=== PATIENT | male | born 1975 | race Caucasian/White ===

== ENCOUNTER 2025-07-07 00:41 | Inpatient (IN) ==
--- NOTE | 2025-07-07 00:46 | Emergency Department Note ---
History of Present Illness General Chief complaint: Referred by Doctor Stated complaint: REF BY DR BEAN Time Seen by Provider: 07/07/25 00:42 History of Present Illness This is a 49-year-old male who presents to the emergency department referred by me regarding visit from earlier today. The patient has had ongoing right shoulder pain x 1 month. No trauma. No injury. During his visit earlier today he underwent x-ray of the right shoulder which did show some lytic abnormalities to the right scapula prompting CT scan of the chest with IV contrast and right shoulder. On this there were findings concerning for potential malignancy. Pathologic fractures also noted. However, there was also comment of "a focal filling defect at the left internal jugular vein in the lower neck, series 4 image 17. This was reviewed with radiologist, Dr. Wolf via phone. Please refer to documentation earlier today regarding this discussion. In short, Dr. Wolf is concerned this may represent a DVT. This did prompt a phone call to the patient and therefore patient returned for further assessment. Allergies Allergy/AdvReac Type Severity Reaction Status Date / Time N Allergy Unknown Uncoded 07/07/25 08:58 NONE Allergy Unknown Uncoded 07/07/25 08:58 Past Med/Surg History Problem List (Updated 07/07/25 @ 08:58 by Lazara Carson) Pathologic rib fracture (Acute) Acute internal jugular vein thrombosis (Acute) Pain of right shoulder region (Acute) Social History (System 07/07/25 @ 08:58 by Lazara Carson) Smoking Status: Current every day smoker Tobacco Type: Cigarettes Cigarettes Per Day: 1 pack a day; Second Hand Exposure: Yes; Do You Dip or Chew Tobacco: No; Tobacco Cessation Education Requested by Patient: No Hx Alcohol Use: Yes Alcohol type: beer Hx Substance Use: No Preferred Language: Libyan Communication Ability: Effective Electronic Test Technician Required: No Beliefs That Will Affect Care: None Current Living Situation: Spouse and Family Other Information That Helps Us Care for You: No Feels Safe at Home: Yes Safety Concerns: Feels Safe At This Time Review of Systems A total of 10 systems reviewed and were otherwise negative Physical Exam Vital Signs Vital Signs - 24 hr 07/07/25 00:46 07/07/25 01:08 07/07/25 02:41 Temperature 36.8 C Temperature Source Temporal Artery Scan Pulse Rate 126 H 118 H Pulse Rate [Apical] 106 H Respiratory Rate 17 18 Respiratory Effort / Characteristics Non-Labored Spontaneous Non-Labored Spontaneous Respiratory Depth Normal Normal Respiratory Pattern Regular Regular Blood Pressure 120/81 Blood Pressure [Right Arm] 138/96 Blood Pressure Mean 94 Blood Pressure Mean [Right Arm] 110 Pulse Oximetry 98 97 Oxygen Delivery Method Room Air Room Air Sepsis Recent Fever Within 48 Hours No Sepsis New/Unexplained Change in Mental Status N/A Sepsis Action Taken by Nursing No Action Required VITAL SIGNS - Vital signs and nursing notes were reviewed. Tachycardic, otherwise stable and afebrile. GENERAL -49-year-old male appearing his stated age who is in no acute distress. Communicates well with provider and answers questions appropriately. SKIN - Without rashes. No meningeal or petechial rash HEAD - NC/AT. EYES - Sclera anicteric. NOSE - Midline and without cyanosis. No epistaxis or purulent drainage noted. MOUTH/OROPHARYNX - Without perioral cyanosis. NECK - Neck with FROM. No nuchal rigidity. LUNGS -CTA CARDIAC - RRR ABDOMEN - Abdominal contour normal without pulsations or visible masses. BS normoactive all four quadrants. No tenderness, palpable masses, hepatosplenomegaly, or ascites noted. EXTREMITIES - No clubbing or peripheral cyanosis. +5/5 strength noted in UE/LE bilaterally. NEUROLOGIC - Cranial nerves II through XII grossly intact. PSYCH -alert, oriented and pleasant on exam Course Administered Medications Acetaminophen (Acetaminophen 325 Mg Tab) 650 mg PO Q4H PRN PRN Reason: Pain or Fever Stop: 08/06/25 05:34 Last Admin: 07/07/25 06:14 Dose: 650 mg Documented By: MARICHUY Heparin Sodium/Dextrose (Heparin 32166 Unit/500 Ml D5w) 25,000 units in 500 mls @ 27 mls/hr IV .[id number] [facility]; Protocol Stop: 08/06/25 01:44 Last Titration: 07/07/25 07:06 Dose: 1,350 units/hr, 27 mls/hr Documented By: [email or web address] Co-signed By: MARICHUY Admin: 07/07/25 02:23 Dose: 1,350 units/hr, 27 mls/hr Documented By: bennett Co-signed By: FABIAN Oxycodone HCl (Oxycodone Hcl Ir 5 Mg Tab (Immediate Release)) 5 mg PO Q6H PRN PRN Reason: Mod-Sev Pain (Scale 4-10) Stop: 07/21/25 05:34 Last Admin: 07/07/25 06:13 Dose: 5 mg Documented By: MARICHUY Discontinued Medications Heparin Sodium (Porcine) (Heparin Sod (Porcine) 1000 Unit/Ml) 1 units IV NOW ONE Stop: 07/07/25 01:34 Last Admin: 07/07/25 02:19 Dose: 6,000 units Documented By: bennett Co-signed By: FABIAN Heparin Sodium/Dextrose (Heparin Iv Adult Wt-Based Standard W/ Initial Bolus Protocol) 1 each IV NOW STA; Protocol Stop: 07/07/25 01:19 Last Admin: 07/07/25 02:29 Dose: Not Given Documented By: bennett Sodium Chloride (Nss) 500 mls @ 125 mls/hr IV .Q4H ONE Stop: 07/07/25 05:17 Last Infusion: 07/07/25 06:23 Dose: Infused Documented By: Admin: 07/07/25 02:23 Dose: 125 mls/hr Documented By: bennett Potassium Chloride (K Jason / Wtr) 10 meq in 100 mls @ 100 mls/hr IV Q1H [facility] Stop: 07/07/25 07:14 Last Admin: 07/07/25 10:03 Dose: 100 mls/hr Documented By: Infusion: 07/07/25 08:54 Dose: Infused Documented By: Admin: 07/07/25 07:54 Dose: 100 mls/hr Documented By: Infusion: 07/07/25 07:15 Dose: Infused Documented By: Admin: 07/07/25 06:15 Dose: 100 mls/hr Documented By: Infusion: 07/07/25 05:11 Dose: Infused Documented By: Admin: 07/07/25 04:07 Dose: 100 mls/hr Documented By: bennett Dexamethasone 6 mg/ Syringe 1.5 mls @ 1 mls/min IV NOW STA Stop: 07/07/25 05:42 Last Admin: 07/07/25 06:13 Dose: 1 mls/min Documented By: MARICHUY Ioversol (Optiray 320 125ml) 118 ml IV ONCE ONE Stop: 07/07/25 01:45 Last Admin: 07/07/25 01:44 Dose: 118 ml Documented By: RUDDY Miscellaneous Information (Patient's Allergy Info Needs Entered) 1 each N/A NOW STA Stop: 07/07/25 01:34 Last Admin: 07/07/25 02:24 Dose: 1 each Documented By: bennett Potassium Chloride (Potassium Chloride 20 Meq/15 Ml Udc) 20 meq PO NOW STA Stop: 07/07/25 03:15 Last Admin: 07/07/25 04:07 Dose: 20 meq Documented By: bennett Medical Decision Making Laboratory Data 07/07/25 01:07 07/07/25 01:07 Lab Results 07/07/25 Range/Units 01:07 WBC 8.03 (4.8-10.8) K/ul RBC 4.30 L (4.70-6.10) M/uL Hgb 16.0 (14.0-18.0) g/dl Hct 43.1 (42.0-52.0) % MCV 100.2 H (80.0-100.0) fL MCH 37.2 H (25.0-34.0) pg MCHC 37.1 H (32.0-36.0) g/dL RDW Std Deviation 45.6 (36.4-46.3) fL RDW Coeff of Anthony 12.3 (11.5-14.5) % Plt Count 176 (130-400) K/uL MPV 9.7 (9.4-12.4) fL Immature Gran % (Auto) 0.2 % Neut % (Auto) 71.6 % Lymph % (Auto) 13.3 % [place] % (Auto) 9.5 % Eos % (Auto) 5.0 % Baso % (Auto) 0.4 % Neut # (Auto) 5.75 (1.40-6.50) K/uL Lymph # (Auto) 1.07 L (1.20-3.40) K/uL [place] # (Auto) 0.76 H (0.11-0.59) K/uL Eos # (Auto) 0.40 (0.00-0.50) K/uL Baso # (Auto) 0.03 (0.00-0.20) K/uL Immature Gran # (Auto) 0.02 (0.01-0.20) K/uL PT 10.5 (9.0-12.0) Seconds INR 1.0 (0.9-1.1) APTT 25 (21-31) Seconds PTT Ratio 0.9 Sodium 136 (136-145) mmol/L Potassium 3.1 L D (3.5-5.1) mmol/L Chloride 99 (98-107) mmol/L Carbon Dioxide 28 (21-32) mmol/L Anion Gap 9 (3-11) BUN 5 L (6-23) mg/dl Creatinine 0.55 L (0.6-1.4) mg/dl Est Cr Clr Drug Dosing 171.4 ml/min eGFR 123.01 BUN/Creatinine Ratio 9.1 L (10-20) Glucose 93 (70-99(Fasting)) mg/dl Calcium 10.6 H (8.6-10.3) mg/dl Magnesium 1.8 (1.7-2.4) mg/dl Total Bilirubin 1.1 H (0.2-1.0) mg/dl AST 13 (13-39) U/L ALT 8 (7-52) U/L Alkaline Phosphatase 81 (34-104) U/L Troponin I High Sens 2.8 (0-20) pg/ml Total Protein 7.2 (6.0-8.3) gm/dl Albumin 3.8 (3.4-5.0) gm/dl Globulin 3.4 (2.5-4.0) gm/dl Albumin/Globulin Ratio 1.1 (0.9-2) Imaging Data Radiologist's Impression: Abdomen/Pelvis CT 07/07/25 01:16 EXAM: CT abd pelvis IV con only CLINICAL HISTORY: abnormal chest CT, DVT TECHNIQUE: Multiple contiguous axial images were obtained from the level of the diaphragm to the pubic symphysis. This study was acquired after intravenous administration of iodinated contrast material, given the patient's indications for the examination. If intravenous contrast material had not been administered, the likelihood of detecting abnormalities relevant to the patient's condition would have been substantially decreased. Coronal and sagittal reformatted images were generated and reviewed to improve anatomic localization and optimize lesion detection. CT scan was performed according to ALARA (as low as reasonably achievable). COMPARISON: none FINDINGS: The visualized lung bases show bilateral mild subpleural atelectasis. ABDOMEN/PELVIS: The liver is normal in size and attenuation. No focal liver lesions are seen. There is no intra- or extrahepatic biliary ductal dilatation. Hepatic vasculature is patent. The gallbladder is unremarkable. The spleen, pancreas, and adrenal glands are unremarkable. The kidneys are normal in size and attenuation. There is no hydronephrosis. Mild bilateral perinephric fat stranding and edema are present. No renal calculi or renal masses are identified. The ureters are normal in caliber and no ureteral calculi are seen. The bladder is normal in contour. The prostate is unremarkable. No evidence of focal or diffuse bowel wall thickening or evidence of bowel obstruction is seen. The appendix is visualized in the right lower quadrant and appears within normal limits. No fluid collections are seen. Multiple subcentimeter sized nodules are seen in the perinephric region,omentum, pericolic region, perisplenic region. The aorta is normal in caliber. No aggressive-appearing osseous lesions are identified. IMPRESSION: 1. Mild bilateral perinephric fat stranding and edema?suggest renal function test correlation. 2. Multiple subcentimeter sized nodules are seen in the perinephric region, pericolic region, omentum, perisplenic region-likely reactive lymphnodes. Electronically signed by Goldy Lovett 07-07-2025 03:15 AM Chest CTA 07/07/25 01:16 EXAM: CT angio chest PE protocol CLINICAL HISTORY: tachycardia, DVT TECHNIQUE: Contiguous axial images were obtained from the neck base through the upper abdomen following intravenous administration of iodinated contrast material. Angiographic images were processed, and 3D MIP images were acquired for interpretation. If IV contrast material had not been administered, the likelihood of detecting abnormalities relevant to the patient's condition would have been substantially decreased. Coronal and sagittal 3-D MIPs were likewise performed and indicated to increase the sensitivity of detecting diffuse clinically relevant pathology. The CT scan was performed according to ALARA (as low as reasonably achievable). COMPARISON: 17:59:02 [employer]. FINDINGS: Ill-defined ground-glass haze with adjacent atelectatic bands is noted involving bilateral posterior basal segments, which could be sequelae of prior infection or congestion. Multiple conglomerated subcentimeter-sized to enlarged lymph nodes are noted involving the prevascular, pre- and paratracheal, aortopulmonary window, subcarinal, and perihilar regions. The largest measures about 33 mm. Adequate contrast bolus without evidence of pulmonary embolism. The central airways are patent. The lungs are clear. No pleural effusion. The heart, aorta, and pulmonary arteries are of normal size and configuration. There are no appreciable coronary artery or aortic atherosclerotic calcifications. No pericardial effusion is identified. The thyroid is unremarkable. No suspicious lytic or sclerotic osseous lesions are identified. IMPRESSION: Ill-defined ground-glass haze with adjacent atelectatic bands is noted involving bilateral posterior basal segments, which could be sequelae of prior infection or congestion. Stable. Multiple conglomerated subcentimeter-sized to enlarged lymph nodes are noted involving the prevascular, pre- and paratracheal, aortopulmonary window, subcarinal, and perihilar regions. The largest measures about 33 mm. Stable. No obvious pulmonary embolism. Electronically signed by Goldy Lovett 07-07-2025 03:03 AM Soft Tissue Neck CT 07/07/25 01:16 EXAM: CT soft tissue neck w con CLINICAL HISTORY: filling defect internal jugular vein TECHNIQUE: Computed tomography of the neck was performed with intravenous contrast. Contiguous axial images were obtained. Reformatted coronal and sagittal images were also reviewed. If IV contrast material had not been administered, the likelihood of detecting abnormalities relevant to the patient's condition would have been substantially decreased. CT scan was performed according to ALARA (as low as reasonably achievable). COMPARISON: none FINDINGS: A small, partially lumen-occluding filling defect is seen at the lower end of the left internal jugular vein near its convergence with the left subclavian vein. The rest of the left internal jugular vein is patent. The visualized left brachiocephalic vein is patent, but is externally compressed by mediastinal lymph nodes. The right internal jugular vein is patent. A few enlarged necrotic lymph nodes are seen in bilateral level IV, , and right supraclavicular locations, the largest measuring 13 x 9 mm. Multiple necrotic lymph nodes are seen in the visualized mediastinum. There is an edematous and bulky soft palate and uvula, causing significant nasopharyngeal and oropharyngeal airway narrowing. Bilateral maxillary sinusitis and right ethmoid sinusitis seen. The included intracranial structures and orbits are grossly unremarkable. The oral cavity, hypopharynx, and larynx are grossly unremarkable. The parotid, submandibular, and thyroid glands are grossly unremarkable. Bilateral carotid arteries are patent and show normal course, caliber, and opacification. The visualized included lung apices are grossly clear, and no acute osseous abnormality is detected. IMPRESSION: 1. A small, partially lumen-occluding focal thrombus is seen at the lower end of the left internal jugular vein near its convergence with the left subclavian vein. The rest of the left internal jugular vein is patent. 2. The visualized left brachiocephalic vein is patent, but is externally compressed by mediastinal lymph nodes. 3. The right internal jugular vein is patent. 4. A few enlarged necrotic lymph nodes are seen in bilateral level IV, , and right supraclavicular locations. 5. Multiple necrotic lymph nodes are seen in the visualized mediastinum. 6. An edematous and bulky soft palate and uvula cause significant nasopharyngeal and oropharyngeal airway narrowing. Electronically signed by Goldy Lovett 07-07-2025 03:07 AM MDM Narrative Patient was seen and evaluated as above in room B05. Review was performed of nursing notes and vital signs. I did review pertinent previous visits and patient history. After obtaining a thorough history and physical examination the above work up was performed. Patient presents to us today referred back to the ED by me as I saw him on earlier visit. Please refer to earlier visit regarding full findings. 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 Wolf. I did speak with Dr. Wolf via phone and he notes this is a DVT. I did have the patient return for further assessment. EKG per my interpretation reveals sinus tachycardia at a rate of 120 bpm. QTc 435. QRS 82. No ST elevation on this rhythm tracing. Options of care were discussed with the patient. IV access was established. Labs were drawn. I did elect to further CT scans with angio of the chest, abdomen and pelvis with IV contrast but also soft tissue neck. I did confirm with our instructional technologist this would be 1 contrast load to scan through these regions. I reviewed benefit versus risk with the patient. At this time we will proceed. I also considered anticoagulation noting the filling defect is seen on the chest CT earlier today. After reviewing benefit versus risk of anticoagulation with the patient, decision was made to proceed. Patient denies any recent trauma or injury. No history of GI bleeding. No bleeding disorders. It is felt that the benefit outweighed risk. CT scans resulted as above. I discussed the case with the hospitalist service, Dr. Reich. We are in agreement to proceed with the IV heparin, further imaging. GCS: 15 In the evaluation and treatment of this patient the following differential diagnoses were entertained: PE, DVT, malignancy, infection, among others Impression & Plan Pain of right shoulder region, Acute internal jugular vein thrombosis, Pathologic rib fracture Discharge Plan Visit Data Chief Complaint: Referred by Doctor Stated Complaint: REF BY DR BEAN ED Provider: Sree Stuart ED Midlevel Provider: Yair Dubois Discharge Problem: Pain of right shoulder region, Acute internal jugular vein thrombosis, Pathologic rib fracture Patient Disposition: Admitted As Inpatient Condition: Good Discharge Instructions Interventions: ED Discharge Assessment Last Done: 07/07/25 05:40
[2025-07-07 01:26] LABS: Hematocrit (blood only) 43.1 % (42.0-52.0); Hemoglobin 16.0 g/dl (14.0-18.0); Immature Granulocytes # (auto) 0.02 K/uL (0.01-0.20); Immature Granulocytes % (auto) 0.2 %; Mean Corpuscular Hemoglobin 37.2 pg (25.0-34.0); Mean Corpuscular Volume 100.2 fL (80.0-100.0); Platelet Count 176 K/uL (130-400); RDW Standard Deviation 45.6 fL (36.4-46.3); Red Blood Count 4.30 M/uL (4.70-6.10); White Blood Count 8.03 K/ul (4.8-10.8)
[2025-07-07] MEDS: OPTIRAY 320 125ml IV ONE (01:44)
[2025-07-07 01:47] LABS: Alanine Aminotransferase 8.0 U/L (7-52); Albumin Globulin Ratio 1.1 (0.9-2); Albumin Level 3.8 gm/dl (3.4-5.0); Alkaline Phosphatase 81.0 U/L (34-104); Anion Gap 9.0 (3-11); Bilirubin,Total 1.1 mg/dl (0.2-1.0); Blood Urea Nitrogen 5.0 mg/dl (6-23); Calcium 10.6 mg/dl (8.6-10.3); Carbon Dioxide 28.0 mmol/L (21-32); Chloride 99.0 mmol/L (98-107); Creatinine Clr Calc Pharmacy 171.4 ml/min; Globulin 3.4 gm/dl (2.5-4.0); Glucose 93.0 mg/dl (70-99(Fasting)); Magnesium 1.8 mg/dl (1.7-2.4); Potassium 3.1 mmol/L (3.5-5.1); Sodium 136.0 mmol/L (136-145); Total Protein 7.2 gm/dl (6.0-8.3)
[2025-07-07 01:56] LABS: INR 1.0 (0.9-1.1); Partial Thromboplastin Time 25 Seconds (21-31); Prothrombin Time 10.5 Seconds (9.0-12.0)
[2025-07-07] MEDS: HEPARIN SOD (PORCINE) 1000 UNIT/ML IV ONE (02:19)
[2025-07-07] MEDS: SODIUM CHLORIDE 0.9% 500 ML IV ONE (02:23)
[2025-07-07] MEDS: HEPARIN 25000 UNIT/500 ML D5W 25,000 UNITS/500 ML BAG IV SCH (02:23)
[2025-07-07] MEDS: Heparin IV Adult Wt-Based Standard w/ INITIAL Bolus Protocol IV STA (02:29)
--- NOTE | 2025-07-07 03:04 | CT Scan Report ---
EXAM: CT angio chest PE protocol CLINICAL HISTORY: tachycardia, DVT TECHNIQUE: Contiguous axial images were obtained from the neck base through the upper abdomen following intravenous administration of iodinated contrast material. Angiographic images were processed, and 3D MIP images were acquired for interpretation. If IV contrast material had not been administered, the likelihood of detecting abnormalities relevant to the patient's condition would have been substantially decreased. Coronal and sagittal 3-D MIPs were likewise performed and indicated to increase the sensitivity of detecting diffuse clinically relevant pathology. The CT scan was performed according to ALARA (as low as reasonably achievable). COMPARISON: 17:59:02 [employer]. FINDINGS: Ill-defined ground-glass haze with adjacent atelectatic bands is noted involving bilateral posterior basal segments, which could be sequelae of prior infection or congestion. Multiple conglomerated subcentimeter-sized to enlarged lymph nodes are noted involving the prevascular, pre- and paratracheal, aortopulmonary window, subcarinal, and perihilar regions. The largest measures about 33 mm. Adequate contrast bolus without evidence of pulmonary embolism. The central airways are patent. The lungs are clear. No pleural effusion. The heart, aorta, and pulmonary arteries are of normal size and configuration. There are no appreciable coronary artery or aortic atherosclerotic calcifications. No pericardial effusion is identified. The thyroid is unremarkable. No suspicious lytic or sclerotic osseous lesions are identified. IMPRESSION: Ill-defined ground-glass haze with adjacent atelectatic bands is noted involving bilateral posterior basal segments, which could be sequelae of prior infection or congestion. Stable. Multiple conglomerated subcentimeter-sized to enlarged lymph nodes are noted involving the prevascular, pre- and paratracheal, aortopulmonary window, subcarinal, and perihilar regions. The largest measures about 33 mm. Stable. No obvious pulmonary embolism. Electronically signed by Goldy Lovett 07-07-2025 03:03 AM
--- NOTE | 2025-07-07 03:08 | CT Scan Report ---
EXAM: CT soft tissue neck w con CLINICAL HISTORY: filling defect internal jugular vein TECHNIQUE: Computed tomography of the neck was performed with intravenous contrast. Contiguous axial images were obtained. Reformatted coronal and sagittal images were also reviewed. If IV contrast material had not been administered, the likelihood of detecting abnormalities relevant to the patient's condition would have been substantially decreased. CT scan was performed according to ALARA (as low as reasonably achievable). COMPARISON: none FINDINGS: A small, partially lumen-occluding filling defect is seen at the lower end of the left internal jugular vein near its convergence with the left subclavian vein. The rest of the left internal jugular vein is patent. The visualized left brachiocephalic vein is patent, but is externally compressed by mediastinal lymph nodes. The right internal jugular vein is patent. A few enlarged necrotic lymph nodes are seen in bilateral level IV, , and right supraclavicular locations, the largest measuring 13 x 9 mm. Multiple necrotic lymph nodes are seen in the visualized mediastinum. There is an edematous and bulky soft palate and uvula, causing significant nasopharyngeal and oropharyngeal airway narrowing. Bilateral maxillary sinusitis and right ethmoid sinusitis seen. The included intracranial structures and orbits are grossly unremarkable. The oral cavity, hypopharynx, and larynx are grossly unremarkable. The parotid, submandibular, and thyroid glands are grossly unremarkable. Bilateral carotid arteries are patent and show normal course, caliber, and opacification. The visualized included lung apices are grossly clear, and no acute osseous abnormality is detected. IMPRESSION: 1. A small, partially lumen-occluding focal thrombus is seen at the lower end of the left internal jugular vein near its convergence with the left subclavian vein. The rest of the left internal jugular vein is patent. 2. The visualized left brachiocephalic vein is patent, but is externally compressed by mediastinal lymph nodes. 3. The right internal jugular vein is patent. 4. A few enlarged necrotic lymph nodes are seen in bilateral level IV, , and right supraclavicular locations. 5. Multiple necrotic lymph nodes are seen in the visualized mediastinum. 6. An edematous and bulky soft palate and uvula cause significant nasopharyngeal and oropharyngeal airway narrowing. Electronically signed by Goldy Lovett 07-07-2025 03:07 AM
--- NOTE | 2025-07-07 03:16 | CT Scan Report ---
EXAM: CT abd pelvis IV con only CLINICAL HISTORY: abnormal chest CT, DVT TECHNIQUE: Multiple contiguous axial images were obtained from the level of the diaphragm to the pubic symphysis. This study was acquired after intravenous administration of iodinated contrast material, given the patient's indications for the examination. If intravenous contrast material had not been administered, the likelihood of detecting abnormalities relevant to the patient's condition would have been substantially decreased. Coronal and sagittal reformatted images were generated and reviewed to improve anatomic localization and optimize lesion detection. CT scan was performed according to ALARA (as low as reasonably achievable). COMPARISON: none FINDINGS: The visualized lung bases show bilateral mild subpleural atelectasis. ABDOMEN/PELVIS: The liver is normal in size and attenuation. No focal liver lesions are seen. There is no intra- or extrahepatic biliary ductal dilatation. Hepatic vasculature is patent. The gallbladder is unremarkable. The spleen, pancreas, and adrenal glands are unremarkable. The kidneys are normal in size and attenuation. There is no hydronephrosis. Mild bilateral perinephric fat stranding and edema are present. No renal calculi or renal masses are identified. The ureters are normal in caliber and no ureteral calculi are seen. The bladder is normal in contour. The prostate is unremarkable. No evidence of focal or diffuse bowel wall thickening or evidence of bowel obstruction is seen. The appendix is visualized in the right lower quadrant and appears within normal limits. No fluid collections are seen. Multiple subcentimeter sized nodules are seen in the perinephric region,omentum, pericolic region, perisplenic region. The aorta is normal in caliber. No aggressive-appearing osseous lesions are identified. IMPRESSION: 1. Mild bilateral perinephric fat stranding and edema?suggest renal function test correlation. 2. Multiple subcentimeter sized nodules are seen in the perinephric region, pericolic region, omentum, perisplenic region-likely reactive lymphnodes. Electronically signed by Goldy Lovett 07-07-2025 03:15 AM
[2025-07-07] MEDS: POTASSIUM CHLORIDE 20 MEQ/15 ML UDC PO STA (04:07)
[2025-07-07] MEDS: POTASSIUM CHLORIDE / WTR 10 MEQ/100 ML PLCT IV SCH (04:07)
--- NOTE | 2025-07-07 04:34 | History & Physical Report ---
Date of Service July 07, 2025 Assessment & Plan (1) Acute internal jugular vein thrombosis: Plan: 49-year-old male with no significant past medical history presents with right shoulder pain and found to have lytic lesions and also left jugular vein DVT. Patient is having ongoing right shoulder pain for about a month. He was seen at [facility] few weeks back and chest x-ray was done. He was prescribed muscle relaxant and prednisone. He also followed up with PCP. As symptoms not getting better he came to the ER earlier in the day. He had a shoulder x-ray which showed a bony destructive lesion involve the lateral aspect of the scapula and also fracture of this right sixth rib with minimal displacement. Chest CT showed several abnormal enlarged and necrotic appearing lymph nodes in the mediastinum. Right 6th and 5th rib fracture associate with abnormal lucency appearing pathologic. Shoulder CT was unremarkable. Patient wanted to follow as outpatient and was discharged. But later it was realized that CT scan of the chest showed filling defect in the left internal jugular vein in the lower neck and the patient was called back to the hospital. Patient says currently pain is better. Has some chest congestion. Denies any fevers. No nausea. No abdominal pain. No headache. Vision is okay. Appetite is okay. Denies any recent weight loss. Denies night sweats. Normal bowel and bladder movements. Hemodynamics okay. Acute left internal jugular vein thrombosis Pathological fractures of the right 5th and 6th ribs Mild bilateral perinephric fat stranding on CT abdomen pelvis CTA chest shows' multiple conglomerated subcentimeter sized enlarged lymph nodes involving the prevascular and paratracheal and aortopulmonary window, subcarinal and perihilar regions.' Soft tissue neck CT scan shows 'small partially lumen occluding focal thrombosis in the lower end of the left internal jugular vein near its convergence with left subclavian vein. Few enlarged necrotic lymph nodes seen in the bilateral level 4, 6 and right supraclavicular location. Multiple necrotic lymph nodes seen in the visualized mediastinum. And also edematous and bulky soft palate and uvula causing significant nasopharyngeal and oropharyngeal airway narrowing'. Patient hemodynamics are okay. Started on IV heparin. A dose of Decadron ordered Pain control. Close monitoring telemetry Consult hematology/oncology and ENT for further recommendations Tobacco abuse Counseling DVT prophylaxis On IV heparin Disposition Telemetry Full code. : History of Present Illness Chief Complaint: Shoulder pain, left jugular DVT Primary Care Provider: NO PCP 49-year-old male with no significant past medical history presents with right shoulder pain and found to have lytic lesions and also left jugular vein DVT. Patient is having ongoing right shoulder pain for about a month. He was seen at [facility] few weeks back and chest x-ray was done. He was prescribed muscle relaxant and prednisone. He also followed up with PCP. As symptoms not getting better he came to the ER earlier in the day. He had a shoulder x-ray which showed a bony destructive lesion involve the lateral aspect of the scapula and also fracture of this right sixth rib with minimal displacement. Chest CT showed several abnormal enlarged and necrotic appearing lymph nodes in the mediastinum. Right 6th and 5th rib fracture associate with abnormal lucency appearing pathologic. Shoulder CT was unremarkable. Patient wanted to follow as outpatient and was discharged. But later it was realized that CT scan of the chest showed filling defect in the left internal jugular vein in the lower neck and the patient was called back to the hospital. Patient says currently pain is better. Has some chest congestion. Denies any fevers. No nausea. No abdominal pain. No headache. Vision is okay. Appetite is okay. Denies any recent weight loss. Denies night sweats. Normal bowel and bladder movements. Hemodynamics okay. Past medical history. As mentioned above Past surgical history. Had surgery to his right little finger. Social history. Smokes 1 pack a day. No alcohol. No drug use. Family history. Denies any significant family history. Allergies Allergy/AdvReac Type Severity Reaction Status Date / Time No Known Allergies Allergy Unverified 07/07/25 02:18 Past Med/Surg History Problem List (Updated 07/07/25 @ 02:15 by Yair Dubois PA-C) Pathologic rib fracture (Acute) Acute internal jugular vein thrombosis (Acute) Pain of right shoulder region (Acute) Social History Smoking Status: Current every day smoker Tobacco Type: Cigarettes Cigarettes Per Day: 1 pack a day; Second Hand Exposure: Yes; Do You Dip or Chew Tobacco: No; Tobacco Cessation Education Requested by Patient: No Hx Alcohol Use: Yes Alcohol type: beer Hx Substance Use: No Preferred Language: Yakut Communication Ability: Effective Infrastructure Engineer Required: No Beliefs That Will Affect Care: None Current Living Situation: Spouse and Family Other Information That Helps Us Care for You: No Feels Safe at Home: Yes Safety Concerns: Feels Safe At This Time Review of Systems Review of Systems: All systems reviewed & are unremarkable except as noted in HPI & below Physical Exam Physical Exam: General-Not in distress Head- atraumatic Eyes- PERRL. ENT- oropharynx clear Neck- supple, no JVD. Lungs- clear to auscultation no wheezing or crackles Heart- regular rhythm; no murmur, no gallop Abdomen- normal bowel sounds, soft, nontender, no distension Extremities- no pretibial edema, no erythema seen Neuro- alert, oriented PERRL, no facial palsy; no dysarthria; moves extremities Results & Data Results & Data Vital Signs (Past 12 Hours) Vital Signs Temp Pulse Pulse Resp BP BP Pulse Ox 07/07/25 02:41 106 H 18 138/96 97 07/07/25 01:08 118 H 07/07/25 00:46 36.8 C 126 H 17 120/81 98 O2 Del Method 07/07/25 02:41 Room Air 07/07/25 01:08 07/07/25 00:46 Room Air Diagnostic Findings Laboratory Results WBC 8.03 K/ul (4.8-10.8) 07/07/25 01:07 RBC 4.30 M/uL (4.70-6.10) L 07/07/25 01:07 Hgb 16.0 g/dl (14.0-18.0) 07/07/25 01:07 Hct 43.1 % (42.0-52.0) 07/07/25 01:07 MCV 100.2 fL (80.0-100.0) H 07/07/25 01:07 MCH 37.2 pg (25.0-34.0) H 07/07/25 01:07 MCHC 37.1 g/dL (32.0-36.0) H 07/07/25 01:07 RDW Std Deviation 45.6 fL (36.4-46.3) 07/07/25 01:07 RDW Coeff of Anthony 12.3 % (11.5-14.5) 07/07/25 01:07 Plt Count 176 K/uL (130-400) 07/07/25 01:07 MPV 9.7 fL (9.4-12.4) 07/07/25 01:07 Immature Gran % (Auto) 0.2 % 07/07/25 01:07 Neut % (Auto) 71.6 % 07/07/25 01:07 Lymph % (Auto) 13.3 % 07/07/25 01:07 [place] % (Auto) 9.5 % 07/07/25 01:07 Eos % (Auto) 5.0 % 07/07/25 01:07 Baso % (Auto) 0.4 % 07/07/25 01:07 Neut # (Auto) 5.75 K/uL (1.40-6.50) 07/07/25 01:07 Lymph # (Auto) 1.07 K/uL (1.20-3.40) L 07/07/25 01:07 [place] # (Auto) 0.76 K/uL (0.11-0.59) H 07/07/25 01:07 Eos # (Auto) 0.40 K/uL (0.00-0.50) 07/07/25 01:07 Baso # (Auto) 0.03 K/uL (0.00-0.20) 07/07/25 01:07 Immature Gran # (Auto) 0.02 K/uL (0.01-0.20) 07/07/25 01:07 PT 10.5 Seconds (9.0-12.0) 07/07/25 01:07 INR 1.0 (0.9-1.1) 07/07/25 01:07 APTT 25 Seconds (21-31) 07/07/25 01:07 PTT Ratio 0.9 07/07/25 01:07 Sodium 136 mmol/L (136-145) 07/07/25 01:07 Potassium 3.1 mmol/L (3.5-5.1) L D 07/07/25 01:07 Chloride 99 mmol/L (98-107) 07/07/25 01:07 Carbon Dioxide 28 mmol/L (21-32) 07/07/25 01:07 Anion Gap 9 (3-11) 07/07/25 01:07 BUN 5 mg/dl (6-23) L 07/07/25 01:07 Creatinine 0.55 mg/dl (0.6-1.4) L 07/07/25 01:07 Est Cr Clr Drug Dosing 171.4 ml/min 07/07/25 01:07 eGFR 123.01 07/07/25 01:07 BUN/Creatinine Ratio 9.1 (10-20) L 07/07/25 01:07 Glucose 93 mg/dl (70-99(Fasting)) 07/07/25 01:07 Calcium 10.6 mg/dl (8.6-10.3) H 07/07/25 01:07 Magnesium 1.8 mg/dl (1.7-2.4) 07/07/25 01:07 Total Bilirubin 1.1 mg/dl (0.2-1.0) H 07/07/25 01:07 AST 13 U/L (13-39) 07/07/25 01:07 ALT 8 U/L (7-52) 07/07/25 01:07 Alkaline Phosphatase 81 U/L (34-104) 07/07/25 01:07 Troponin I High Sens 2.8 pg/ml (0-20) 07/07/25 01:07 Total Protein 7.2 gm/dl (6.0-8.3) 07/07/25 01:07 Albumin 3.8 gm/dl (3.4-5.0) 07/07/25 01:07 Globulin 3.4 gm/dl (2.5-4.0) 07/07/25 01:07 Albumin/Globulin Ratio 1.1 (0.9-2) 07/07/25 01:07 Impressions Abdomen/Pelvis CT 07/07/25 01:16 EXAM: CT abd pelvis IV con only CLINICAL HISTORY: abnormal chest CT, DVT TECHNIQUE: Multiple contiguous axial images were obtained from the level of the diaphragm to the pubic symphysis. This study was acquired after intravenous administration of iodinated contrast material, given the patient's indications for the examination. If intravenous contrast material had not been administered, the likelihood of detecting abnormalities relevant to the patient's condition would have been substantially decreased. Coronal and sagittal reformatted images were generated and reviewed to improve anatomic localization and optimize lesion detection. CT scan was performed according to ALARA (as low as reasonably achievable). COMPARISON: none FINDINGS: The visualized lung bases show bilateral mild subpleural atelectasis. ABDOMEN/PELVIS: The liver is normal in size and attenuation. No focal liver lesions are seen. There is no intra- or extrahepatic biliary ductal dilatation. Hepatic vasculature is patent. The gallbladder is unremarkable. The spleen, pancreas, and adrenal glands are unremarkable. The kidneys are normal in size and attenuation. There is no hydronephrosis. Mild bilateral perinephric fat stranding and edema are present. No renal calculi or renal masses are identified. The ureters are normal in caliber and no ureteral calculi are seen. The bladder is normal in contour. The prostate is unremarkable. No evidence of focal or diffuse bowel wall thickening or evidence of bowel obstruction is seen. The appendix is visualized in the right lower quadrant and appears within normal limits. No fluid collections are seen. Multiple subcentimeter sized nodules are seen in the perinephric region,omentum, pericolic region, perisplenic region. The aorta is normal in caliber. No aggressive-appearing osseous lesions are identified. IMPRESSION: 1. Mild bilateral perinephric fat stranding and edema?suggest renal function test correlation. 2. Multiple subcentimeter sized nodules are seen in the perinephric region, pericolic region, omentum, perisplenic region-likely reactive lymphnodes. Electronically signed by Goldy Lovett 07-07-2025 03:15 AM Chest CTA 07/07/25 01:16 EXAM: CT angio chest PE protocol CLINICAL HISTORY: tachycardia, DVT TECHNIQUE: Contiguous axial images were obtained from the neck base through the upper abdomen following intravenous administration of iodinated contrast material. Angiographic images were processed, and 3D MIP images were acquired for interpretation. If IV contrast material had not been administered, the likelihood of detecting abnormalities relevant to the patient's condition would have been substantially decreased. Coronal and sagittal 3-D MIPs were likewise performed and indicated to increase the sensitivity of detecting diffuse clinically relevant pathology. The CT scan was performed according to ALARA (as low as reasonably achievable). COMPARISON: 17:59:02 CASING MAN. FINDINGS: Ill-defined ground-glass haze with adjacent atelectatic bands is noted involving bilateral posterior basal segments, which could be sequelae of prior infection or congestion. Multiple conglomerated subcentimeter-sized to enlarged lymph nodes are noted involving the prevascular, pre- and paratracheal, aortopulmonary window, subcarinal, and perihilar regions. The largest measures about 33 mm. Adequate contrast bolus without evidence of pulmonary embolism. The central airways are patent. The lungs are clear. No pleural effusion. The heart, aorta, and pulmonary arteries are of normal size and configuration. There are no appreciable coronary artery or aortic atherosclerotic calcifications. No pericardial effusion is identified. The thyroid is unremarkable. No suspicious lytic or sclerotic osseous lesions are identified. IMPRESSION: Ill-defined ground-glass haze with adjacent atelectatic bands is noted involving bilateral posterior basal segments, which could be sequelae of prior infection or congestion. Stable. Multiple conglomerated subcentimeter-sized to enlarged lymph nodes are noted involving the prevascular, pre- and paratracheal, aortopulmonary window, subcarinal, and perihilar regions. The largest measures about 33 mm. Stable. No obvious pulmonary embolism. Electronically signed by Goldy Lovett 07-07-2025 03:03 AM Soft Tissue Neck CT 07/07/25 01:16 EXAM: CT soft tissue neck w con CLINICAL HISTORY: filling defect internal jugular vein TECHNIQUE: Computed tomography of the neck was performed with intravenous contrast. Contiguous axial images were obtained. Reformatted coronal and sagittal images were also reviewed. If IV contrast material had not been administered, the likelihood of detecting abnormalities relevant to the patient's condition would have been substantially decreased. CT scan was performed according to ALARA (as low as reasonably achievable). COMPARISON: none FINDINGS: A small, partially lumen-occluding filling defect is seen at the lower end of the left internal jugular vein near its convergence with the left subclavian vein. The rest of the left internal jugular vein is patent. The visualized left brachiocephalic vein is patent, but is externally compressed by mediastinal lymph nodes. The right internal jugular vein is patent. A few enlarged necrotic lymph nodes are seen in bilateral level IV, , and right supraclavicular locations, the largest measuring 13 x 9 mm. Multiple necrotic lymph nodes are seen in the visualized mediastinum. There is an edematous and bulky soft palate and uvula, causing significant nasopharyngeal and oropharyngeal airway narrowing. Bilateral maxillary sinusitis and right ethmoid sinusitis seen. The included intracranial structures and orbits are grossly unremarkable. The oral cavity, hypopharynx, and larynx are grossly unremarkable. The parotid, submandibular, and thyroid glands are grossly unremarkable. Bilateral carotid arteries are patent and show normal course, caliber, and opacification. The visualized included lung apices are grossly clear, and no acute osseous abnormality is detected. IMPRESSION: 1. A small, partially lumen-occluding focal thrombus is seen at the lower end of the left internal jugular vein near its convergence with the left subclavian vein. The rest of the left internal jugular vein is patent. 2. The visualized left brachiocephalic vein is patent, but is externally compressed by mediastinal lymph nodes. 3. The right internal jugular vein is patent. 4. A few enlarged necrotic lymph nodes are seen in bilateral level IV, , and right supraclavicular locations. 5. Multiple necrotic lymph nodes are seen in the visualized mediastinum. 6. An edematous and bulky soft palate and uvula cause significant nasopharyngeal and oropharyngeal airway narrowing. Electronically signed by Goldy Lovett 07-07-2025 03:07 AM ECG Additional Comments: ECG. Sinus tachycardia 120. No acute ST changes seen. Code Status & VTE Plan VTE Prophylaxis Plan VTE Prophylaxis will be ordered: Yes
[2025-07-07] MEDS ORDERED: NITROGLYCERIN SL 0.4 MG/TAB TAB SL PRN (05:35)
[2025-07-07] MEDS ORDERED: DEXAMETHASONE SOD INJ 4 MG/ML VIAL IV STA (05:35)
[2025-07-07] MEDS ORDERED: ONDANSETRON INJ 2 MG/ML 2 ML VIAL IV PRN (05:35)
[2025-07-07] MEDS: dexAMETHasone 6 MG in SYRINGE 0 ML IV STA (06:13)
[2025-07-07] MEDS: ACETAMINOPHEN 325 MG TAB PO PRN (06:14)
--- NOTE | 2025-07-07 08:53 | Oncology Consultation ---
Date of Consultation July 07, 2025 Assessment & Plan (1) Acute internal jugular vein thrombosis: (2) Pathologic rib fracture: Plan -Recommend discussing with IR to see if supraclavicular lymph nodes are accessible to IR guided biopsy. If not accessible, consider pulmonology evalu ation for bronchoscopy/EBUS with biopsy of subcarinal/perihilar necrotic lymph nodes -Continue heparin for now pending biopsies. Can be discharged home on Eliquis once diagnosis has been established. History of Present Illness Reason for Consultation: left jugular dvt, malignancy Attending Physician: Aspen Azevedo MD History of Present Illness 49-year-old gentleman admitted to [facility] earlier today with right shoulder pain. X-ray of the right shoulder revealed destructive lesion involving the lateral aspect of the scapula, fracture of right sixth rib. Chest CT on 07/06/2025 revealed several abnormally enlarged and necrotic appearing lymph nodes in the mediastinum, right sided rib fracture including acute appearing right rib 6 fracture and subacute appearing right rib [address] abdomen and pelvis on 04/06/2025 showed mild bilateral perinephric fat stranding and edema, multiple subcentimeter sized nodules in the perinephric region, pericolic region, omentum, perisplenic region likely reactive lymph nodes. CTA chest also on 07/07/2025 revealed ill-defined ground glass haze with adjacent atelectatic bands involving bilateral posterior basal segments, multiple conglomerated subcentimeter sized 2 enlarged lymph nodes involving prevascular, pre and paratracheal, aortopulmonary window, subcarinal and perihilar regions. CT soft tissue neck revealed small partially lumen occluding focal thrombus in the lower end of the left internal jugular vein, visualized left brachiocephalic vein is patent but externally compressed by mediastinal lymph nodes, few enlarged necrotic lymph nodes in bilateral level 4, 6 and right supraclavicular locations, multiple necrotic lymph nodes in the visualized mediastinum and edematous and bulky soft palate and uvula causing significant n asopharyngeal and oropharyngeal airway narrowing.He is currently on heparin for DVT. Labs significant for hypercalcemia with calcium level of 10.6 Allergies Allergy/AdvReac Type Severity Reaction Status Date / Time N Allergy Unknown Uncoded 07/07/25 08:58 NONE Allergy Unknown Uncoded 07/07/25 08:58 Patient History Social History (System 07/07/25 @ 08:58 by Lazara Carson) Smoking Status: Current every day smoker Tobacco Type: Cigarettes Cigarettes Per Day: 1 pack a day; Second Hand Exposure: Yes; Do You Dip or Chew Tobacco: No; Tobacco Cessation Education Requested by Patient: No Hx Alcohol Use: Yes Alcohol type: beer Hx Substance Use: No Preferred Language: German Communication Ability: Effective Cottage Supervisor Required: No Beliefs That Will Affect Care: None Current Living Situation: Spouse and Family Other Information That Helps Us Care for You: No Feels Safe at Home: Yes Safety Concerns: Feels Safe At This Time Assistive Devices: None Results & Data Vital Signs (Past 12 Hours) Vital Signs Temp Pulse Pulse Resp BP BP Pulse Ox 07/07/25 08:02 36.7 C 88 18 117/85 95 07/07/25 05:40 37 C 98 H 18 114/86 97 07/07/25 05:40 37 C 98 H 18 114/86 97 07/07/25 05:35 37.2 C 98 H 18 114/83 97 07/07/25 05:03 97 H 07/07/25 02:41 106 H 18 138/96 97 07/07/25 01:08 118 H 07/07/25 00:46 36.8 C 126 H 17 120/81 98 O2 Del Method 07/07/25 08:02 Room Air 07/07/25 05:40 Room Air 07/07/25 05:40 Room Air 07/07/25 05:35 Room Air 07/07/25 05:03 07/07/25 02:41 Room Air 07/07/25 01:08 07/07/25 00:46 Room Air
[2025-07-07 09:05] LABS: ANTI-Xa, UFH(UnfractionatedHep 0.41 IU/ml (0.3-0.7)
--- NOTE | 2025-07-07 11:27 | Communication Note ---
Date of Service: July 07, 2025 Patient seen and examined Reports right shoulder pain radiating to right chest wall over the past month. Was evaluated in [facility] ED and PCP. Has got multiple doses of steroid with intermittent improvement while on steroid but resumes afterwards. Denied any other complaints Smokes 1ppd for 30yrs. Maternal Grandmother had lung cancer Exam notable for tenderness over right scapula -Right Shoulder XR noted destructive bony lesion on lateral aspect of scapula -Chest CT noted numerous abnormal, some necrotic lymph node in mediastinum, a large one adjacent to right aspect of trachea, an area of masslike lymphadenopathy between BCV and BCA, filling defect in LIJV, rib # rib 6, rib #5, some abnormal lucency in surrounding bone -Shoulder CT noted small lytic lesion in lateral aspect of scapula -CT Abd/P noted mild b/l perinephric fat stranding and edema, multiple subcentimeter nodules in perinephric, pericolic regions, omentum, perisplenic region. -CTA chest noted did not show PE nbut noted multiple conglomerated subcentimeter sized to enlarged lymph node in prevascular, pre and paratracheal, aortopulm window, subcarinal and perihilar regions -CT Neck noted enlarged necrotic lymph nodes in levels IV,V and right supraclavicular locations, multiple necrotic lymph nodes in mediastinum, edematous and bulky soft palate and uvuala causing significant nasopharyngeal and oropharyngeal airwary narrowing, Left Internal jgular thrombus. Left Brachiocephalic vein is patent but externally compressed by mediastinal lymph nodes. Reviewed findings with patient and at bedside Findings worrisome for malignancy Will need some tissue for diagnoses Awaiting Oncology eval and ENT eval Counseled patient regarding smoking cessation. Currently on hep gtt for thrombosis. Plan to hold if procedure planned Replete hypokalemia Other plans as detailed in H/P this AM
--- NOTE | 2025-07-07 13:53 | Electrocardiogram Report ---
Test Reason : Blood Pressure : */* mmHG Vent. Rate : 120 BPM Atrial Rate : 120 BPM P-R Int : 154 ms QRS Dur : 82 ms QT Int : 308 ms P-R-T Axes : 46 51 43 degrees QTcB Int : 435 ms Sinus tachycardia Otherwise normal ECG No previous ECGs available Confirmed by Destin Nuñez ([id number]) on 07/07/2025 1:52:32 PM Referred By: REFERRED SELF Confirmed By: Destin Nuñez
--- NOTE | 2025-07-07 20:36 | ENT Consultation ---
Date of Consultation July 07, 2025 Assessment & Plan (1) Internal jugular vein thrombosis: 1. IF this IJ thrombosis was associated with Fevers, Infections and such -an infection would be able to classify this as LeMierre syndrome -but it is NOT!. The patient has no time recounted any episode of infection, fever, or mucopurulent discharge. LeMierre syndrome as a Fusobacterium necrophorum association which will require IV antibiotics -but again -there is NO HISTORY of an INFECTION process. 2. Internal jugular vein thrombosis as an incidental finding and with the bony lytic lesions in the chest suggest that the patient has a hypercoagulability state -commonly associated with malignancy. The necrotic lymph nodes as noted on the CT scan in the mediastinum, the RIGHT shoulder pain and the incidental LEFT internal jugular vein thrombosis workup requires consideration of a cancer until proven otherwise. 3. The patient's current history and examination, the internal jugular vein thrombosis would not be surgically managed but manage by hematology on oncology with heparin anticoagulation as noted to reduce the patient's risk of stroke or thrombotic event. History of Present Illness Reason for Consultation: LEFT Internal Jugular Thrombosis (incidental finding on chronic pain work-up). Requesting Physician: [facility] Attending Physician: Aspen Azevedo MD History of Present Illness Tima Cao is a 49-year-old male who is admitted to the [facility] today for abnormal findings on CT scan after workup for his complaints of 6 months of RIGHT shoulder pain radiating to the scapula and lytic bone lesions to the RIGHT chest ribs. Patient states about 6 months ago his right shoulder was bothering him which is for usual motion and work that he would have dull aching pain that was disturbing his sleep and comfort and started going to various urgent cares and ERs for evaluation starting around the [facility] area - He was seen at [facility] few weeks back and chest x-ray was done. He was prescribed muscle relaxant and prednisone. Then up to [facility] facilities and eventually to [facility] last evening. During the 6 months he has had some plain films done of his right shoulder and in various regimens of medical management with muscle relaxers to pain control to see if the root cause of his RIGHT shoulder pain could be resolved. Part of his workup last evening at the [facility] for his RIGHT ch ronic shoulder pain was a CT scan of the chest that showed the lytic bony lesions on the RIGHT ribs but also a A LEFT LOWER internal jugular vein involving a portion of the LEFT subclavian vein. Chest CT showed several abnormal enlarged and necrotic appearing lymph nodes in the mediastinum. Right 6th and 5th rib fracture associate with abnormal lucency appearing pathologic. Shoulder CT was unremarkable. Patient states - During this past six (6) months of his right shoulder pain and and medical evaluations the patient DENIES that he had any febrile episodes, DENIES any sore throats or recurrent tonsillitis, DENIES any head or neck infections or sinus problems. The patient states she is otherwise in good health. 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 The patient is a tobacco user 1 pack/day for the last 30 years. Patient is a social drinker just with friends on weekends and some nights mostly beer or wine. Patient DENIES any head neck surgeries as a child NOR as an adult. Allergies Allergy/AdvReac Type Severity Reaction Status Date / Time N Allergy Unknown Uncoded 07/07/25 08:58 NONE Allergy Unknown Uncoded 07/07/25 08:58 Patient History Social History Smoking Status: Current every day smoker Tobacco Type: Cigarettes Cigarettes Per Day: 1 pack a day; Second Hand Exposure: Yes; Do You Dip or Chew Tobacco: No; Tobacco Cessation Education Requested by Patient: No Hx Alcohol Use: Yes Alcohol type: beer Hx Substance Use: No Preferred Language: Pashto Communication Ability: Effective Publishing Director Required: No Beliefs That Will Affect Care: None Current Living Situation: Spouse and Family Other Information That Helps Us Care for You: No Feels Safe at Home: Yes Safety Concerns: Feels Safe At This Time Assistive Devices: None Review of Systems Review of Systems: General: DENIES any fever, chills, night sweats. Head / Neurological: DENIES any vertigo, imbalance. NO diplopia, NO visual changes. DENIES Migraines or Headaches Ears: DENIES any otorrhea NO tinnitus NO Hearing Loss. Nose: DENIES epistaxis NO Nasal Congestion NO Post Nasal Drip Throat: NO Hoarseness NO swallowing issues. Respiratory: DENIES Shortness of Breath NO wheezing Cardiovascular: DENIES any irregular heart rate. DENIES Chest pain. GI: DENIES any nausea / emesis. DENIES any melena Musculoskeletal: NO weakness. Normal ROM of extremities. Hematologic / Immune: NO bleeding disorders or easy bruising. DENIES any anti-coagulation. DENIES Night sweats. DENIES Seasonal Allergies NO Tongue swelling Physical Exam Physical Exam: HEAD: Normocephalic CRANIAL NERVES: CN II - XII Intact NO Facial Weakness FACE: NO Erythema NO Rash Lips Normal EYES: EOMI PERRL Ears: External Ears - Normal Ext Aud. Canals - CLEAR Bilateral Tympanic Membranes - Normal Bilateral Middle Ears - CLEAR Bilateral NOSE: External Dorsum - NO Deformity Septum - mostly Midline - intact - NO perforation. - NO blood, NO clots. NO mucopus. Turbinate - Normal shape & mucosa - NO Polyps - NO mucopus. MOUTH: Dentition - extremely Poor ALL UPPER teeth are carious - with worn enamel or exposed dentin, - LOWER Dentition in Poor condition. with multiple caries and/or broken teeth. Floor of Mouth - CLEAR. NO Edema Blanco's Ducts normal - CLear saliva. Tongue - NO masses - NO Ulcers. - Palpation of the anterior tongue and base of tongue are all normal WITHOUT any mass WITHOUT any induration. OROPHARYNX: Tonsils Normal +1 -smooth and symmetrical -NO exudates. NO palpable masses. Uvula Midline -NO lesions -soft palate elevates symmetrically. NECK: Trachea Midline NO masses Most of the Anterior cervical neck without adenopathy - except within the Supraclavicular Fossae - biateral. Results & Data Vital Signs (Past 12 Hours) Vital Signs Temp Pulse Pulse Resp BP Pulse Ox O2 Del Method 07/07/25 15:36 36.9 C 90 18 121/83 97 Room Air 07/07/25 14:00 103 H 07/07/25 11:40 36.4 C L 96 H 18 121/84 92 Room Air 07/07/25 09:00 Room Air Laboratory Results WBC = 7.3 - 8.0 Hgb = 15.3 - 16.2 Hct = 44.3% - 43.1% Diagnostic Findings CT soft tissue neck w con CLINICAL HISTORY: Filling defect LEFT internal jugular vein TECHNIQUE: Computed tomography of the neck was performed with intravenous contrast. Contiguous axial images were obtained. Reformatted coronal and sagittal images were also reviewed. If IV contrast material had not been administered, the likelihood of detecting abnormalities relevant to the patient's condition would have been substantially decreased. CT scan was performed according to ALARA (as low as reasonably achievable). COMPARISON: none FINDINGS: A small, partially lumen-occluding filling defect is seen at the lower end of the left internal jugular vein near its convergence with the left subclavian vein. The rest of the left internal jugular vein is patent. The visualized left brachiocephalic vein is patent, but is externally compressed by mediastinal lymph nodes. The right internal jugular vein is patent. A few enlarged necrotic lymph nodes are seen in bilateral level IV, , and right supraclavicular locations, the largest measuring 13 x 9 mm. Multiple necrotic lymph nodes are seen in the visualized mediastinum. There is an edematous and bulky soft palate and uvula, causing significant nasopharyngeal and oropharyngeal airway narrowing. Bilateral maxillary sinusitis and right ethmoid sinusitis seen. The included intracranial structures and orbits are grossly unremarkable. The oral cavity, hypopharynx, and larynx are grossly unremarkable. The parotid, submandibular, and thyroid glands are grossly unremarkable. Bilateral carotid arteries are patent and show normal course, caliber, and opacification. The visualized included lung apices are grossly clear, and no acute osseous abnormality is detected. IMPRESSION: 1. A small, partially lumen-occluding focal thrombus is seen at the lower end of the left internal jugular vein near its convergence with the left subclavian vein. The rest of the left internal jugular vein is patent. 2. The visualized left brachiocephalic vein is patent, but is externally compressed by mediastinal lymph nodes. 3. The right internal jugular vein is patent. 4. A few enlarged necrotic lymph nodes are seen in bilateral level IV, , and right supraclavicular locations. 5. Multiple necrotic lymph nodes are seen in the visualized mediastinum. 6. An edematous and bulky soft palate and uvula cause significant nasopharyngeal and oropharyngeal airway narrowing. PG Care Time/CCT Total # of Minutes Spent Total Time Spent with Patient: Total time spent is greater than 50% in coordination of care (as documented) at patient's floor/unit and/or counseling patient:75 [place] [address] IN/OBS CONSULT LVL 4,60M Patient Type New History Problem Focused Exam Expanded Problem Focused Medical Decision Making Moderate Complexity Diagnoses Thrombosis of left internal jugular vein I82.C12 Laterality: left (1) Internal jugular vein thrombosis Laterality: left Qualified Code(s): I82.C12 - Acute embolism and thrombosis of left internal jugular vein
[2025-07-08 06:02] LABS: Hematocrit (blood only) 45.7 % (42.0-52.0); Hemoglobin 15.6 g/dl (14.0-18.0); Mean Corpuscular Hemoglobin 35.2 pg (25.0-34.0); Mean Corpuscular Volume 103.2 fL (80.0-100.0); Platelet Count 171 K/uL (130-400); RDW Standard Deviation 46.9 fL (36.4-46.3); Red Blood Count 4.43 M/uL (4.70-6.10); White Blood Count 8.41 K/ul (4.8-10.8)
[2025-07-08 06:23] LABS: ANTI-Xa, UFH(UnfractionatedHep 0.25 IU/ml (0.3-0.7)
[2025-07-08 06:24] LABS: Alanine Aminotransferase 7.0 U/L (7-52); Albumin Globulin Ratio 1.1 (0.9-2); Albumin Level 3.4 gm/dl (3.4-5.0); Alkaline Phosphatase 85.0 U/L (34-104); Anion Gap 8.0 (3-11); Bilirubin,Total 0.7 mg/dl (0.2-1.0); Blood Urea Nitrogen 7.0 mg/dl (6-23); Calcium 10.3 mg/dl (8.6-10.3); Carbon Dioxide 25.0 mmol/L (21-32); Chloride 104.0 mmol/L (98-107); Creatinine Clr Calc Pharmacy 192.4 ml/min; Globulin 3.1 gm/dl (2.5-4.0); Glucose 117.0 mg/dl (70-99(Fasting)); Potassium 3.9 mmol/L (3.5-5.1); Sodium 137.0 mmol/L (136-145); Total Protein 6.5 gm/dl (6.0-8.3)
--- NOTE | 2025-07-08 11:29 | Hospitalist Progress Note ---
Date of Service July 08, 2025 Assessment & Plan (1) Internal jugular vein thrombosis: (2) Pathologic rib fracture: (3) Lymphadenopathy: Plan 49 year old smoker (30pack years) who presents with intermittent right shoulder pain radiating to right chest wall over the past month Reports right shoulder pain radiating to right chest wall over the past month. Was evaluated in [facility] ED and PCP. Has got multiple doses of steroid with intermittent improvement while on steroid but resumes afterwards. Denied any other complaints Smokes 1ppd for 30yrs. Maternal Grandmother had lung cancer -Right Shoulder XR noted destructive bony lesion on lateral aspect of scapula -Chest CT noted numerous abnormal, some necrotic lymph node in mediastinum, a large one adjacent to right aspect of trachea, an area of masslike lymphadenopathy between BCV and BCA, filling defect in LIJV, rib # rib 6, rib #5, some abnormal lucency in surrounding bone -Shoulder CT noted small lytic lesion in lateral aspect of scapula -CT Abd/P noted mild b/l perinephric fat stranding and edema, multiple subcentimeter nodules in perinephric, pericolic regions, omentum, perisplenic region. -CTA chest noted did not show PE but noted multiple conglomerated subcentimeter sized to enlarged lymph node in prevascular, pre and paratracheal, aortopulm window, subcarinal and perihilar regions -CT Neck noted enlarged necrotic lymph nodes in levels IV,V and right supraclavicular locations, multiple necrotic lymph nodes in mediastinum, edematous and bulky soft palate and uvula causing significant nasopharyngeal and oropharyngeal airway narrowing, Left Internal jugular thrombus. Left Brachiocephalic vein is patent but externally compressed by mediastinal lymph nodes. Findings of significant lymphadenopathy with some necrotic, destructive bone lesions and rib fracture suggest possible malignancy Oncology eval noted I discussed with IR Berto Hylton. He reviewed imaging and noted they can do IR Right supraclavicular Lymph node FNA at 1:30pm on 07/09/25 and to hold heparin drip 4h prior to procedure. Plan to resume anticoagulation/start DOAC after procedure ENT eval noted Counseled again regarding smoking cessation. Mother at bedside. Reviewed findings with them. Answered their questions. Code status: Full Code I spent a total of 55 minutes coordinating, documenting and providing care for this patient excluding time spent in performance of separately billed services Admission and Anticipated Discharge Date Admission Date: July 07, 2025 Subjective Patient seen and examined Reports right shoulder and rib pain Denied any other complaints on ROS Physical Exam Constitutional: + well hydrated; no acute distress Eyes: PERRL, conjunctivae normal, anicteric sclerae ENMT: external ear and nose normal, oropharynx normal Respiratory: normal respiratory effort, lungs clear to auscultation Cardiovascular: Rate/Rhythm: regular rate and regular rhythm Gastrointestinal (Abdomen): normal bowel sounds, soft, nontender, no hepatosplenomegaly Musculoskeletal: Tenderness over right shoulder and right posterior upper chest wall Neurologic: PERRL, EOMI, accommodation nl, no face palsy, no dysarthria Psychiatric: A+Ox3, euthymic affect Results & Data Results & Data Vital Signs (Past 12 Hours) Vital Signs Temp Pulse Pulse Resp BP Pulse Ox O2 Del Method 07/08/25 11:20 36.6 C 87 18 119/80 95 Room Air 07/08/25 08:27 75 07/08/25 07:43 36.3 C L 82 18 125/89 95 Room Air 07/08/25 03:40 36.6 C 75 18 138/88 95 Room Air 07/07/25 23:40 36.6 C 98 H 18 133/92 97 Room Air Laboratory Results Abnormal lab results 07/08/25 Range/Units 05:28 RBC 4.43 L (4.70-6.10) M/uL MCV 103.2 H (80.0-100.0) fL MCH 35.2 H (25.0-34.0) pg RDW Std Deviation 46.9 H (36.4-46.3) fL Heparin Anti-Xa, Unfract 0.25 L (0.3-0.7) IU/ml Creatinine 0.49 L (0.6-1.4) mg/dl Glucose 117 H (70-99(Fasting)) mg/dl AST 11 L (13-39) U/L (1) Internal jugular vein thrombosis Laterality: left Qualified Code(s): I82.C12 - Acute embolism and thrombosis of left internal jugular vein
[2025-07-08 14:38] LABS: ANTI-Xa, UFH(UnfractionatedHep 0.33 IU/ml (0.3-0.7)
[2025-07-09 04:20] LABS: Hematocrit (blood only) 41.0 % (42.0-52.0); Hemoglobin 14.3 g/dl (14.0-18.0); Mean Corpuscular Hemoglobin 35.2 pg (25.0-34.0); Mean Corpuscular Volume 101.0 fL (80.0-100.0); Platelet Count 251 K/uL (130-400); RDW Standard Deviation 47.4 fL (36.4-46.3); Red Blood Count 4.06 M/uL (4.70-6.10); White Blood Count 7.90 K/ul (4.8-10.8)
[2025-07-09 04:36] LABS: Alanine Aminotransferase 8.0 U/L (7-52); Albumin Globulin Ratio 1.3 (0.9-2); Albumin Level 3.4 gm/dl (3.4-5.0); Alkaline Phosphatase 80.0 U/L (34-104); Anion Gap 7.0 (3-11); Bilirubin,Total 0.5 mg/dl (0.2-1.0); Blood Urea Nitrogen 9.0 mg/dl (6-23); Calcium 10.5 mg/dl (8.6-10.3); Carbon Dioxide 26.0 mmol/L (21-32); Chloride 103.0 mmol/L (98-107); Creatinine Clr Calc Pharmacy 188.6 ml/min; Globulin 2.7 gm/dl (2.5-4.0); Glucose 105.0 mg/dl (70-99(Fasting)); Potassium 3.5 mmol/L (3.5-5.1); Sodium 136.0 mmol/L (136-145); Total Protein 6.1 gm/dl (6.0-8.3)
[2025-07-09 04:55] LABS: ANTI-Xa, UFH(UnfractionatedHep 0.27 IU/ml (0.3-0.7)
--- NOTE | 2025-07-09 11:31 | Hospitalist Progress Note ---
Date of Service July 09, 2025 Assessment & Plan (1) Internal jugular vein thrombosis: (2) Pathologic rib fracture: (3) Lymphadenopathy: Plan 49 year old smoker (30pack years) who presents with intermittent right shoulder pain radiating to right chest wall over the past month #Malignancy -Unknown primary -Right Shoulder XR noted destructive bony lesion on lateral aspect of scapula -Chest CT noted numerous abnormal, some necrotic lymph node in mediastinum, a large one adjacent to right aspect of trachea, an area of masslike lymphadenopathy between BCV and BCA, filling defect in LIJV, rib # rib 6, rib #5, some abnormal lucency in surrounding bone -Shoulder CT noted small lytic lesion in lateral aspect of scapula -CT Abd/P noted mild b/l perinephric fat stranding and edema, multiple subcentimeter nodules in perinephric, pericolic regions, omentum, perisplenic region. -CTA chest noted did not show PE but noted multiple conglomerated subcentimeter sized to enlarged lymph node in prevascular, pre and paratracheal, aortopulm window, subcarinal and perihilar regions -CT Neck noted enlarged necrotic lymph nodes in levels IV,V and right supraclavicular locations, multiple necrotic lymph nodes in mediastinum, edematous and bulky soft palate and uvula causing significant nasopharyngeal and oropharyngeal airway narrowing, Left Internal jugular thrombus. Left Brachiocephalic vein is patent but externally compressed by mediastinal lymph nodes. Plan IR Right supraclavicular Lymph node FNA at 1:30pm on 07/09/25 and to hold heparin drip 4h prior to procedure. Plan to resume anticoagulation/start DOAC after procedure #DVT -CT neck showing L IJ thrombus -Oncology recommending AC Plan -Remains on Heparin drip for now with plans to switch to eliquis upon discharge -Monitor for s/s bleeding. Monitor Hgb and anti-Xa levels I spent a total of 56 minutes coordinating, documenting, and providing care for this patient excluding time spent in the performance of separately billed services. This included personally reviewing all current laboratories and imagin g studies, medical reconciliation, outpatient chart review and discussion with specialists Admission and Anticipated Discharge Date Admission Date: July 07, 2025 Subjective Seen and examined. Feels well today and denies any complaints. Patient denies F/C, CP, palpitations, SOB, dyspnea, abd pain, N/V/D Physical Exam Physical Exam: Vitals and labs reviewed General: Well appearing, NAD HEENT: EOMI, PERRLA Neck: Supple Cardiac: RRR no rubs gallops or murmurs Lungs: CTA no rhonchi wheezing or rales Abd: S NT ND BS positive : Deffered MSK: Full ROM. No obvious deformities Ext: No Edema cyanosis Skin: Warm, Dry Neuro: AOx3 No focal deficits. Psych: Normal Mood Results & Data Results & Data Vital Signs (Past 12 Hours) Vital Signs Temp Pulse Pulse Resp BP Pulse Ox O2 Del Method 07/09/25 11:12 37.2 C 97 H 18 117/83 97 Room Air 07/09/25 07:22 36.8 C 89 18 125/85 96 Room Air 07/09/25 07:13 91 H 07/09/25 03:39 36.6 C 86 18 117/78 95 Room Air Laboratory Results Abnormal lab results 07/09/25 Range/Units 03:55 RBC 4.06 L (4.70-6.10) M/uL Hct 41.0 L (42.0-52.0) % MCV 101.0 H (80.0-100.0) fL MCH 35.2 H (25.0-34.0) pg RDW Std Deviation 47.4 H (36.4-46.3) fL Heparin Anti-Xa, Unfract 0.27 L (0.3-0.7) IU/ml Creatinine 0.50 L (0.6-1.4) mg/dl Glucose 105 H (70-99(Fasting)) mg/dl Calcium 10.5 H (8.6-10.3) mg/dl AST 9 L (13-39) U/L (1) Internal jugular vein thrombosis Laterality: left Qualified Code(s): I82.C12 - Acute embolism and thrombosis of left internal jugular vein
[2025-07-09] MEDS: HYDROmorphone INJ 0.5 MG/0.5 ML SYR IV PRN (12:20)
[2025-07-09 12:38] LABS: ANTI-Xa, UFH(UnfractionatedHep < 0.10 IU/ml (0.3-0.7)
[2025-07-09] MEDS ORDERED: ENOXAPARIN 1 MG/KG SQ SCH (13:15)
[2025-07-09] MEDS: ENOXAPARIN 80 MG/0.8 ML SYR SQ SCH (13:44)
--- NOTE | 2025-07-09 14:06 | Ultrasound Report ---
Ultrasound-guided right supraclavicular lymph node FNA INDICATION: right supraclavicular lymphadenopathy PROCEDURE: Procedure and risks were explained. Informed consent was obtained. A final timeout was com pleted. The right neck was prepped and draped in sterile fashion. 1% lidocaine was utilized for skin anesthesia. Utilizing ultrasound guidance, a 25-gauge needle was advanced into the right supraclavicular lymph no de. Ultrasound images were obtained. 3 aspirations were obtained and given to the pathologist. The pa tient tolerated the procedure well. IMPRESSION: Right supraclavicular lymph node FNA as detailed above. Performed, dictated, and signed by Berto Mercedes PA-C; to be co-signed by Dr. Wojciech Rankin. Electronically signed by: Wojciech Rankin M.D. 07/09/2025 2:39 PM
[2025-07-09] MEDS: POLYETHYLENE (MIRALAX) 17 GM PACK PO PRN (20:05)
[2025-07-10 03:32] VITALS: O2SAT 94
[2025-07-10 06:27] LABS: Hematocrit (blood only) 44.1 % (42.0-52.0); Hemoglobin 15.8 g/dl (14.0-18.0); Mean Corpuscular Hemoglobin 36.0 pg (25.0-34.0); Mean Corpuscular Volume 100.5 fL (80.0-100.0); Platelet Count 280 K/uL (130-400); RDW Standard Deviation 45.9 fL (36.4-46.3); Red Blood Count 4.39 M/uL (4.70-6.10); White Blood Count 7.57 K/ul (4.8-10.8)
[2025-07-10 07:28] VITALS: RESP 18; TEMP 98.1
--- NOTE | 2025-07-10 11:58 | Discharge Summary ---
Discharge Summary Date of Service July 10, 2025 Principal Dx & Hospital Course #1 = Principal Diagnosis (1) Internal jugular vein thrombosis: (2) Pathologic rib fracture: (3) Lymphadenopathy: Plan 49 year old smoker (30pack years) who presents with intermittent right shoulder pain radiating to right chest wall over the past month. Right Shoulder XR noted destructive bony lesion on lateral aspect of scapula. Chest CT noted numerous abnormal, some necrotic lymph node in mediastinum, a large one adjacent to right aspect of trachea, an area of masslike lymphadenopathy between BCV and BCA, filling defect in LIJV, rib # rib 6, rib #5, some abnormal lucency in surrounding bone. Shoulder CT noted small lytic lesion in lateral aspect of scapula. CT Abd/P noted mild b/l perinephric fat stranding and edema, multiple subcentimeter nodules in perinephric, pericolic regions, omentum, perisplenic region. CTA chest noted did not show PE but noted multiple conglomerated subcentimeter sized to enlarged lymph node in prevascular, pre and paratracheal, aortopulm window, subcarinal and perihilar regions. CT Neck noted enlarged necrotic lymph nodes in levels IV,V and right supraclavicular locations, multiple necrotic lymph nodes in mediastinum, edematous and bulky soft palate and uvula causing significant nasopharyngeal and oropharyngeal airway narrowing, Left Internal jugular thrombus. Left Brachiocephalic vein is patent but externally compressed by mediastinal lymph nodes. Oncology was consulted and recommended LN biopsy by IR and blake for the L IJ thrombus. S/p LN biopsy yesterday with pathology pending. He was sent on [email or web address] starter pack. He wished to f/u with [facility] and their office was notified and will call to schedule appt for him. Vitals and labs are stable on day of discharge. #Malignancy -Unknown primary -Right Shoulder XR noted destructive bony lesion on lateral aspect of scapula -Chest CT noted numerous abnormal, some necrotic lymph node in mediastinum, a large one adjacent to right aspect of trachea, an area of masslike lymphadenopathy between BCV and BCA, filling defect in LIJV, rib # rib 6, rib #5, some abnormal lucency in surrounding bone -Shoulder CT noted small lytic lesion in lateral aspect of scapula -CT Abd/P noted mild b/l perinephric fat stranding and edema, multiple subcentimeter nodules in perinephric, pericolic regions, omentum, perisplenic region. -CTA chest noted did not show PE but noted multiple conglomerated subcentimeter sized to enlarged lymph node in prevascular, pre and paratracheal, aortopulm window, subcarinal and perihilar regions -CT Neck noted enlarged necrotic lymph nodes in levels IV,V and right supraclavicular locations, multiple necrotic lymph nodes in mediastinum, edematous and bulky soft palate and uvula causing significant nasopharyngeal and oropharyngeal airway narrowing, Left Internal jugular thrombus. Left Brachiocephalic vein is patent but externally compressed by mediastinal lymph nodes. Plan IR Right supraclavicular Lymph node FNA at 1:30pm on 07/09/25 and to hold heparin drip 4h prior to procedure. Plan to resume anticoagulation/start DOAC after procedure #DVT -CT neck showing L IJ thrombus -Oncology recommending AC I spent a total of 45 minutes coordinating, documenting, and providing care for this patient excluding time spent in the performance of separately billed services. This included personally reviewing all current laboratories and imaging studies, medical reconciliation, outpatient chart review and discussion with specialists Notes For Next Care Provider Medication Changes From Visit Eliquis starter pack Oxycodone for cancer related bone pain Admission HPI Per Admitting Provider 49-year-old male with no significant past medical history presents with right shoulder pain and found to have lytic lesions and also left jugular vein DVT. Patient is having ongoing right shoulder pain for about a month. He was seen at [facility] few weeks back and chest x-ray was done. He was prescribed muscle relaxant and prednisone. He also followed up with PCP. As symptoms not getting better he came to the ER earlier in the day. He had a shoulder x-ray which showed a bony destructive lesion involve the lateral aspect of the scapula and also fracture of this right sixth rib with minimal displacement. Chest CT showed several abnormal enlarged and necrotic appearing lymph nodes in the mediastinum. Right 6th and 5th rib fracture associate with abnormal lucency appearing pathologic. Shoulder CT was unremarkable. Patient wanted to follow as outpatient and was discharged. But later it was realized that CT scan of the chest showed filling defect in the left internal jugular vein in the lower neck and the patient was called back to the hospital. Patient says currently pain is better. Has some chest congestion. Denies any fevers. No nausea. No abdominal pain. No headache. Vision is okay. Appetite is okay. Denies any recent weight loss. Denies night sweats. Normal bowel and bladder movements. Hemodynamics okay. Past medical history. As mentioned above Past surgical history. Had surgery to his right little finger. Social history. Smokes 1 pack a day. No alcohol. No drug use. Family history. Denies any significant family history. Discharge Exam Vitals and labs reviewed General: Well appearing, NAD HEENT: EOMI, PERRLA Neck: Supple Cardiac: RRR no rubs gallops or murmurs Lungs: CTA no rhonchi wheezing or rales Abd: S NT ND BS positive : Deffered MSK: Full ROM. No obvious deformities Ext: No Edema cyanosis Skin: Warm, Dry Neuro: AOx3 No focal deficits. Psych: Normal Mood Updated Medication List Medication Instructions Recorded Confirmed Type apixaban 5 mg (74 tabs) tablets in 5 mg PO BID #74 ea 07/10/25 Rx a dose pack (Eliquis) oxycodone 5 mg tablet 5 mg PO Q6H PRN pain 10 days #15 07/10/25 Rx tabs Hospital Stay Data Consultations 07/07/25 01:11 ED Decision to Admit Stat 07/07/25 08:00 Consult Hematology Routine Consult Otolaryngology (Head and Neck) Routine Diagnostic Imagining Performed 07/07/25 01:16 CT abd pelvis IV con only Stat CT angio chest PE protocol Stat CT soft tissue neck w con Stat 07/09/25 IR FNA lymph node US Urgent Pending Results Patient Have Any Pending Studies at Discharge: Yes Discharge Instructions Given to Patient (Per Discharging Provider) [facility] oncology office is aware and will call you in the next few days to ry tinsley an appt. If they do not, please call them by monday. Follow up with your PCP and/or oncologist for further pain management. Total Time Total Time Spent Total Time Spent (In Minutes): 45
[2025-07-10 12:12] VITALS: BP 124/85
[2025-07-10 12:52] VITALS: PULSE 101
--- NOTE | 2025-07-11 10:53 | Communication Note ---
Date of Service: July 11, 2025 Pathology called author to notify of biopsy result. preliminary result showing sq cell carcinoma. further testing being done. Personally called Mr Greer to let him know of result. He had already called [facility] oncology team and they are making an appt for him.
== END 2025-07-10 12:58 | disposition home or self-care (01) | DRG 543 ==
LOC: ED 00:41 → 4W 04:11 → SUATTDRO 04:11 → MERGE 04:11 → 4W 05:40